=== PATIENT | male | born 1980 | race Caucasian/White ===

== ENCOUNTER 2025-03-28 04:07 | Inpatient (IN) | payer BC ==
[~2025-03-28] VITALS: Ht 175.3 cm; Wt 104.3 kg
[2025-03-28] VITALS (13 sets, daily range): BP systolic 114–126; BP diastolic 66–85; TEMP 97.3–98.1; O2SAT 93–100
[2025-03-28] MEDS ORDERED: dexaMETHasone SOD PHOSPHATE 1 ML ONE (04:26)
[2025-03-28] MEDS ORDERED: ACETAMINOPHEN ES 500 MG TABLET ONE (04:26)
[2025-03-28] MEDS: ALBUTEROL FS 2.5 MG/0.5 ML VIAL.NEB NEB ONE ×2 (04:27→08:26)
[2025-03-28] MEDS: IPRATROPIUM NEB FS 0.5 MG/2.5 ML AMPUL.NEB NEB ONE (04:27)
[2025-03-28] MEDS: ALBUTEROL FS 2.5 MG/3 ML VIAL.NEB CONTNEB ONE (04:27)
[2025-03-28] MEDS ORDERED: ALBUTEROL FS 2.5 MG/3 ML VIAL.NEB ONE (04:33)
[2025-03-28] MEDS ORDERED: IPRATROPIUM NEB FS 0.5 MG/2.5 ML AMPUL.NEB ONE (04:33)
[2025-03-28] MEDS: dexaMETHasone SOD PHOSPHATE 10 MG/ML VIAL IV ONE (04:35)
[2025-03-28] MEDS: IV NS 0.9% 1,000 ML BAG IV ONE ×2 (04:35→07:56)
[2025-03-28] MEDS: ACETAMINOPHEN ES 500 MG TABLET PO ONE (04:36)
[2025-03-28 04:53] LABS: PLATELET COUNT (AUTO) 148 K/uL (150-450); RED BLOOD CELL COUNT(AUTO) 5.20 MIL/uL (4.5-6.0); RED CELL DISTRIBUTION WIDTH 15.7 % (11.5-15.0); WHITE BLOOD COUNT (AUTO) 7.6 K/uL (4.3-11.0)
[2025-03-28 05:13] LABS: INR 1.11 (0.91-1.10)
[2025-03-28 05:15] LABS: ASPARTATE AMINOTRANSFERASE 32 U/L (15-37); CALCIUM, SERUM 8.3 mg/dL (8.5-10.1); CREATININE 1.0 mg/dL (0.6-1.3); SODIUM SERUM 138 mmol/L (136-145); TOTAL PROTEIN, SERUM 7.2 g/dL (6.4-8.2); UREA NITROGEN, BLOOD 19 mg/dL (7-18)
[2025-03-28 05:18] LABS: LACTIC ACID 1.5 mmol/L (0.4-2.0)
[2025-03-28] MEDS ORDERED: ASPIRIN EC 325 MG TABLET.DR PO ONE (05:30)
[2025-03-28] MEDS: ASPIRIN EC 325 MG TABLET.DR PO ONE (05:34)
[2025-03-28] MEDS ORDERED: CEFTRIAXONE 1GM BAG (ER ONLY) 50 ML IV ONE (06:14)
[2025-03-28] MEDS ORDERED: AZITHROMYCIN 500 MG VIAL ONE (06:15)
[2025-03-28] MEDS ORDERED: POTASSIUM CHLORIDE 20 MEQ TAB.PRT.SR PO ONE ×3 (06:15→09:30)
[2025-03-28] MEDS: CEFTRIAXONE 1GM BAG (ER ONLY) 50 ML IV ONE (06:23)
[2025-03-28] MEDS: POTASSIUM CHLORIDE 20 MEQ TAB.PRT.SR PO ONE (06:23)
[2025-03-28] MEDS: AZITHROMYCIN 500 MG in IV D5W 250 ML IV ONE (07:01)
[2025-03-28] MEDS ORDERED: ACETAMINOPHEN 325 MG TABLET PO PRN (08:00)
[2025-03-28] MEDS ORDERED: ONDANSETRON HCL/PF 4 MG/2 ML VIAL IVP PRN (08:00)
[2025-03-28] MEDS ORDERED: MAGNESIUM HYDROXIDE 30 ML UDC PO PRN (08:00)
[2025-03-28] MEDS ORDERED: Z GUARD REMEDY 4 OZ OINT TP PRN (08:00)
[2025-03-28] MEDS ORDERED: MAG HYDROX/AL HYDROX/SIMETH 30 ML UDC PO PRN (08:00)
[2025-03-28] MEDS ORDERED: PROP20TA19 PO (08:14)
[2025-03-28] MEDS ORDERED: GABA800T11 PO (08:14)
[2025-03-28] MEDS ORDERED: EVOL140P3 SQ (08:14)
[2025-03-28] MEDS ORDERED: ZOLP10TA2 PO (08:14)
[2025-03-28] MEDS ORDERED: BUPR8TAB4 SL (08:14)
[2025-03-28] MEDS ORDERED: VITA-339 PO (08:14)
[2025-03-28] MEDS ORDERED: ALBU8.5H8 IH (08:14)
[2025-03-28] MEDS ORDERED: OMEG10006 PO (08:14)
[2025-03-28] MEDS ORDERED: QUET300T5 PO (08:14)
[2025-03-28] MEDS ORDERED: METHYLCOBALAMIN PO (08:14)
[2025-03-28] MEDS ORDERED: MULT-594 PO (08:14)
[2025-03-28] MEDS ORDERED: BENZ200C53 PO (08:14)
[2025-03-28] MEDS ORDERED: MUSHROOM SUPPLEMENT PO (08:14)
[2025-03-28 09:18] LABS: ABG BASE EXCESS -6.6 mmol/L (-2.0-3.0); ABG OXYGEN SATURATION 96.4 % (94.0-98.0); ABG PCO2 35.7 mmHg (35.0-48.0); ABG PH 7.331 (7.350-7.450); ABG PO2 97.8 mmHg (83.0-108.0); ABG TOTAL HEMOGLOBIN 14.2 G/dL (13.5-17.5); FLOW, BLOOD GAS 2.00 L/min (0.00-30.00); FRACTIONATED INSPIRED OXYGEN 29.0 %; SITE, ABG RIGHT RADIAL
[2025-03-28] MEDS: CEFEPIME 2 GM in IV D5W 100 ML IV SCH (09:32)
[2025-03-28] MEDS: ENOXAPARIN SODIUM 40 MG/0.4 ML DISP.SYRIN SQ SCH (09:33)
[2025-03-28] MEDS: ALBUTEROL FS 2.5 MG/0.5 ML VIAL.NEB NEB SCH (10:37)
[2025-03-28 16:51] LABS: APPEARANCE,URINE CLEAR (CLEAR); BLOOD, URINE NEGATIVE Ery/uL (NEGATIVE); LEUKOCYTE ESTERASE ,URINE NEGATIVE (NEGATIVE); NITRITE, URINE NEGATIVE (NEGATIVE); UGLUCOSE NEGATIVE (NEGATIVE)
[2025-03-28 17:03] LABS: ADD URINE CULTURE NO; SQUAMOUS EPITHELIAL CELL,UR 0-2 /HPF (None Seen)
[2025-03-28] MEDS: ZOLPIDEM TARTRATE 5 MG TABLET PO PRN (21:24)
[2025-03-29] VITALS (9 sets, daily range): BP systolic 129–145; BP diastolic 73–98; TEMP 98–98.6; O2SAT 94–100
[2025-03-29] MEDS: LORAZEPAM 0.5 MG TABLET PO PRN (03:40)
[2025-03-29 05:46] LABS: PLATELET COUNT (AUTO) 172 K/uL (150-450); RED BLOOD CELL COUNT(AUTO) 4.82 MIL/uL (4.5-6.0); RED CELL DISTRIBUTION WIDTH 15.8 % (11.5-15.0); WHITE BLOOD COUNT (AUTO) 8.3 K/uL (4.3-11.0)
[2025-03-29 06:06] LABS: CALCIUM, SERUM 9.0 mg/dL (8.5-10.1); CREATININE 0.9 mg/dL (0.6-1.3); PHOSPHORUS 2.6 mg/dL (2.5-4.9); SODIUM SERUM 141.0 mmol/L (136-145); UREA NITROGEN, BLOOD 14.0 mg/dL (7-18)
[2025-03-29] MEDS: AZITHROMYCIN 500 MG in IV D5W 250 ML IV SCH (08:27)
[2025-03-29] MEDS: IV NS 0.9% 1,000 ML IV PRN (10:01)
[2025-03-29] MEDS: ASPIRIN 81 MG TAB.CHEW PO SCH (10:49)
[2025-03-30 04:00] VITALS: BP 134/98; TEMP 98.4; O2SAT 98
[2025-03-30 07:31] VITALS: O2SAT 95
[2025-03-30 07:42] VITALS: O2SAT 100
[2025-03-30 08:00] VITALS: BP 129/81; TEMP 98.6; O2SAT 96
[2025-03-30] MEDS ORDERED: AZIT500T4 PO (10:37)
[2025-03-30 19:43] LABS: HIV-1/2 ANTIBODY NON REACTIVE (NONREACTIVE)
== END 2025-03-30 12:10 | disposition home or self-care (01) | DRG 193 ==
LOC: ER 04:10 → TELE1 08:24 → MEDSG1 03-29 10:23
PROVIDERS: ADMIT Internal Medicine; ATTEND Internal Medicine
DX: J15.9 Unspecified bacterial pneumonia (principal); I21.A1 Myocardial infarction type 2; J96.01 Acute respiratory failure with hypoxia; D69.6 Thrombocytopenia, unspecified; E78.5 Hyperlipidemia, unspecified; I10 Essential (primary) hypertension; Z87.01 Personal history of pneumonia (recurrent); Z20.822 Contact with and (suspected) exposure to COVID-19; R73.9 Hyperglycemia, unspecified; G47.33 Obstructive sleep apnea (adult) (pediatric); Z68.34 Body mass index [BMI] 34.0-34.9, adult
CPT/HCPCS: 36415; 36600; 71045-TC; 80048-TC; 80076-TC; 81001; 82803-TC; 83605-TC; 83735-TC; 83880; 84100-TC; 84484-TC; 85025-TC; 85730-TC; 86803; 87040-TC; 87070-TC; 87086-TC; 87205-TC; 87806; 93307-TC; 93970-TC; 94760-TC; 94799-TC; 99082-TC; A4223; G0378; J0456; J0692; J0696; J1100; J1650; J7030; J7050; J7060